=== PATIENT | female | born 1950 | race African-American/Black ===

== ENCOUNTER 2021-07-18 05:34 | Emergency (ER) | payer OTHER ==
[~2021-07-18] VITALS: Ht 170.2 cm; Wt 65.8 kg
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
[2021-07-18] MEDS ORDERED: MORPHINE SULFATE INJ 2 MG/ML DISP.SYRIN IV ONE ×4 (06:00→17:00)
[2021-07-18] MEDS ORDERED: IV NS 0.9% 1,000 ML BAG IV ONE (06:00)
[2021-07-18] MEDS ORDERED: ONDANSETRON HCL/PF 4 MG/2 ML VIAL IV ONE (06:00)
[2021-07-18] MEDS ORDERED: TDAP [DIPH/PERTUSSIS/TET] 0.5 ML VIAL IM ONE ×2 (06:00→06:01)
[2021-07-18] MEDS ORDERED: MORPHINE SULFATE INJ 4 MG/ML DISP.SYRIN ONE (06:01)
[2021-07-18] MEDS ORDERED: ONDANSETRON HCL/PF 4 MG/2 ML VIAL ONE ×2 (06:01→08:55)
--- NOTE | 2021-07-18 06:09 | NUR ---
20g IV LINE AT . BLOOD DRAWN AND SENT TO LAB.
[2021-07-18 06:10] LABS: BASOPHILS # (AUTO) 0.1 K/uL (0.0-0.2); BASOPHILS % (AUTO) 0.7 % (0.0-2.0); EOSINOPHILS % (AUTO) 1.4 % (0.0-6.0); HEMATOCRIT 37 % (33-45); HEMOGLOBIN 12.5 g/dL (11.5-14.8); LYMPHOCYTES # (AUTO) 3.3 K/uL (0.8-4.8); LYMPHOCYTES % (AUTO) 36.3 % (20.0-44.0); MEAN CORPUSCULAR HGB CONC 34 g/dl (31.0-36.0); MEAN CORPUSCULAR VOLUME 85 fL (82-100); MONOCYTES # (AUTO) 0.5 K/uL (0.1-1.30); MONOCYTES % (AUTO) 5.6 % (2.0-12.0); NEUTROPHILS # (AUTO) 5.1 K/uL (1.8-8.9); PLATELET COUNT (AUTO) 405 K/uL (150-450); RED BLOOD CELL COUNT(AUTO) 4.38 MIL/uL (4.0-5.2); WHITE BLOOD COUNT (AUTO) 9.1 K/uL (4.3-11.0)
--- NOTE | 2021-07-18 06:45 | NUR ---
PT TAKEN FOR CT SCAN
[2021-07-18 07:03] LABS: CALCIUM, SERUM 9.9 mg/dL (8.5-10.1); CREATININE 0.7 mg/dL (0.6-1.3); POTASSIUM 2.9 mmol/L (3.5-5.1)
[2021-07-18] MEDS ORDERED: CEFAZOLIN 1 GM in IV D5W 50 ML IV ONE (08:00)
--- NOTE | 2021-07-18 08:00 | NUR ---
Dr Cruz in to update pt with plan of care. Ortho consult and possible admission. EMT for wound irrigation/dressing and short leg splint
--- NOTE | 2021-07-18 08:00 | NUR ---
ADDENDUM: Intravenous End Time Documentation: 1) 1/2 NS with 20 MEQ KCL at 200/ hour : start time: 0900 am ; end time: infusing during transfer to another acute facility : IV site: RFA PIV # 2 Port # 2 2) Cefazolin 1 gram IVPB : start time: 0800 am ; end time:0830 am : IV site: RFA PIV # 20 Port # 2
[2021-07-18] MEDS ORDERED: MORPHINE SULFATE INJ 2 MG/ML DISP.SYRIN ONE ×3 (08:55→16:21)
[2021-07-18] MEDS ORDERED: ONDANSETRON HCL/PF - ER 4 MG/2 ML VIAL IV ONE (09:00)
[2021-07-18] MEDS ORDERED: IV PREMIX 0.45% NS + KCL 1,000 ML IV ONE (09:00)
[2021-07-18] MEDS ORDERED: AMLO2.5T4 PO (09:02)
[2021-07-18] MEDS ORDERED: HYDR12.55 PO (09:02)
--- NOTE | 2021-07-18 09:25 | NUR ---
Haile galo in [facility] - 07/30/21 at 0952 by ENRIQUE ADDENDUM: Intravenous End Time Documentation: 551/2 NS with 20 meq KCL at 200 cc per hour: start time 0925 am end time: 1635 pm PIV # 20 RFA, port # 1
--- NOTE | 2021-07-18 09:30 | NUR ---
EMT Doc Applied Short Leg splint on Right LE. Pt able to wiggle toes post splint +DP Nailbeds pink
--- NOTE | 2021-07-18 09:55 | NUR ---
MOVE SHEET SUBMITTED.
--- NOTE | 2021-07-18 10:51 | NUR ---
Appears comfortable- reclining in bed. Able to dose on/off. States "Pain controlled" VSS. Status quo. Awre of all updates. Kept NPO for now
[2021-07-18] MEDS ORDERED: HYDROCODONE/APAP 5/325MG TABLET ONE (12:05)
[2021-07-18] MEDS ORDERED: HYDROCODONE/APAP 5/325MG TABLET PO ONE (12:30)
--- NOTE | 2021-07-18 12:50 | NUR ---
DR. MOTA SPEAKING WITH DR. KEY.
--- NOTE | 2021-07-18 13:13 | NUR ---
LEO ESPARZA OF [facility] [phone] [facility] ROOM [address] UNDER DR[address] OLIVARES. CALL PEEWEE GARCIA FOR REPORT AT [phone]
--- NOTE | 2021-07-18 13:23 | NUR ---
[facility] ETA 1418
--- NOTE | 2021-07-18 13:31 | NUR ---
SILVANA ESPARZA [facility] CALLED [facility] ETA 1500.
--- NOTE | 2021-07-18 15:16 | NUR ---
[facility] DR. PEREZ ACCEPTING AT [facility].
--- NOTE | 2021-07-18 16:24 | NUR ---
Transfer Note Accepted To: [facility] Accepted by: Dr Nicole Costa Provider: Anthony Room number: [id number] Report to : [facility] Agency: [facility] EMT Vivar Given 2mg morphine prior to transport as ordered by MD Luke. VSS. Pt aware of transfer and concurs
[2021-07-18 16:28] VITALS: BP 131/84
== END 2021-07-18 16:35 | disposition short-term general hospital (02) ==
LOC: ER 05:43
DX: S82.841B Displaced bimalleolar fracture of right lower leg, initial encounter for open fracture type I or II (principal); S82.091A Other fracture of right patella, initial encounter for closed fracture; V49.49XA Driver injured in collision with other motor vehicles in traffic accident, initial encounter; Y92.414 Local residential or business street as the place of occurrence of the external cause; Z20.822 Contact with and (suspected) exposure to COVID-19; R00.0 Tachycardia, unspecified; I45.2 Bifascicular block; E87.6 Hypokalemia; I10 Essential (primary) hypertension; R68.84 Jaw pain
CPT/HCPCS: 29515; 36415; 70450; 70486; 71045; 72125; 73560; 73590; 73610; 74176; 80048; 85025; 85730; 87426; 90471; 90715; 93005; 96361; 96365; 96366; 96367; 96375; 96376; 99285; A6403; C9803; J0690; J2270 ×4; J2405 ×3; J7030; J7060